=== PATIENT | female | born 1975 | race American Indian/Alaskan Native ===

== ENCOUNTER 2020-04-06 10:37 | Outpatient (CLI) | payer OTHER | END 2020-04-06 13:17 | disposition home or self-care (01) | LOC: NST 10:37 | PROVIDERS: ATTEND Obstetrics & Gynecology Maternal & Fetal Medicine | DX: Z34.83 Encounter for supervision of other normal pregnancy, third trimester (principal) ==

== ENCOUNTER 2020-04-19 11:45 | Outpatient (CLI) | payer OTHER | END 2020-04-19 12:24 | disposition home or self-care (01) | LOC: NST 11:45 | PROVIDERS: ATTEND Obstetrics & Gynecology | DX: Z34.83 Encounter for supervision of other normal pregnancy, third trimester (principal) ==

== ENCOUNTER 2020-05-05 14:43 | Outpatient (CLI) | payer OTHER | END 2020-05-05 15:20 | disposition home or self-care (01) | LOC: NST 14:43 | PROVIDERS: ATTEND Obstetrics & Gynecology | DX: Z34.83 Encounter for supervision of other normal pregnancy, third trimester (principal) ==

== ENCOUNTER 2020-05-19 11:15 | Outpatient (CLI) | payer OTHER | END 2020-05-19 11:55 | disposition home or self-care (01) | LOC: NST 11:15 | PROVIDERS: ATTEND Obstetrics & Gynecology | DX: Z34.83 Encounter for supervision of other normal pregnancy, third trimester (principal) ==

== ENCOUNTER 2020-05-23 11:02 | Inpatient (IN) | payer OTHER ==
[2020-05-23] MEDS ORDERED: INTEGRA F CAPS1 EACH PO (11:29)
== END 2020-05-25 17:18 | disposition home or self-care (01) | DRG 807 ==
LOC: SURG-SUITE 11:02 → LDR 11:02 → OB/GYN 15:32 → SURG-SUITE 15:58
PROVIDERS: ADMIT Obstetrics & Gynecology; ATTEND Obstetrics & Gynecology
PROC: 10E0XZZ Delivery of Products of Conception, External Approach (ICD-10-PCS; principal; 2020-05-23)
PROC: 0W8NXZZ Division of Female Perineum, External Approach (ICD-10-PCS; 2020-05-23)
PROC: 4A1HXFZ Monitoring of Products of Conception, Cardiac Rhythm, External Approach (ICD-10-PCS; 2020-05-23)
DX: O80 Encounter for full-term uncomplicated delivery (principal); Z37.0 Single live birth; Z3A.39 39 weeks gestation of pregnancy